=== PATIENT | female | born 1970 | race American Indian/Alaskan Native ===

== ENCOUNTER 2019-05-17 08:54 | Outpatient (CLI) | payer OTHER ==
--- NOTE | 2019-05-17 10:05 | XRay Report ---
LEFT HAND 2 VIEWS INDICATION: L HAND PAIN. COMPARISON: None. IMPRESSION: No acute osseous or soft tissue abnormality. No significant DJD. Normal exam. Signer Name: Julio Cesar Aarujo Jr, MD Signed: 05/17/2019 10:01 AM Workstation Name: [id number]
--- NOTE | 2019-05-17 10:06 | XRay Report ---
LEFT SHOULDER 3 VIEWS INDICATION: LEFT SHOULDER PAIN. COMPARISON: None. IMPRESSION: No acute osseous or soft tissue abnormality. There is minimal acromial spurring. No s ignificant degenerative joint disease. Signer Name: Julio Cesar Araujo Jr, MD Signed: 05/17/2019 10:02 AM Workstation Name: [id number]
--- NOTE | 2019-05-17 10:08 | XRay Report ---
LUMBOSACRAL SPINE, 3 VIEWS INDICATION: BACK PAIN. COMPARISON: None. IMPRESSION: 6 mm anterolisthesis of L4 with respect to L5 is noted on the lateral image. This appear s to be secondary to degenerative facet arthropathy. Mild to moderate degenerative disc narrowing is identified at L4-5 and L5-S1. Moderate hypertrophic facet arthropathy is identified at L4-5. Mild fa cet arthropathy is identified at the remaining levels. No acute osseous or soft tissue abnormality. Signer Name: Julio Cesar Araujo Jr, MD Signed: 05/17/2019 10:03 AM Workstation Name: [id number]
== END 2019-05-17 08:55 | disposition home or self-care (01) ==
LOC: XRAY 08:54
PROVIDERS: ATTEND Internal Medicine
DX: G56.82 Other specified mononeuropathies of left upper limb (principal); E11.319 Type 2 diabetes mellitus with unspecified diabetic retinopathy without macular edema; I10 Essential (primary) hypertension; F41.9 Anxiety disorder, unspecified; M54.5 Low back pain; M25.512 Pain in left shoulder
CPT/HCPCS: 72100